=== PATIENT | male | born 1970 | race Caucasian/White ===

== ENCOUNTER 2022-05-24 16:39 | Emergency (ER) | payer OTHER ==
[~2022-05-24] VITALS: Ht 165.1 cm; Wt 72.6 kg
--- NOTE | 2022-05-24 17:12 | NUR ---
THE PATIENT BIBS FOR C/O ABDOMINAL PAIN 06/07 W/ NAUSEA AND VOMITING SINCE YESTERDAY. IN ROOM AIR AND DENIES SOB. RESPIRATION REGULAR AND UNLABORED. WILL CONTINUE TO MONITOR THE PATIENT.
[2022-05-24 18:05] LABS: BILIRUBIN,URINE NEGATIVE (NEGATIVE); COLOR,URINE YELLOW (YELLOW); LEUKOCYTE ESTERASE ,URINE NEGATIVE (NEGATIVE); NITRITE, URINE NEGATIVE (NEGATIVE); PROTEIN,URINE NEGATIVE (NEGATIVE); UGLUCOSE NEGATIVE (NEGATIVE); UROBILINOGEN,URINE 0.2 EU/dL (0.2)
[2022-05-24] MEDS ORDERED: MAG HYDROX/AL HYDROX/SIMETH 30 ML UDC ONE (18:09)
[2022-05-24] MEDS ORDERED: KETOROLAC TROMETHAMINE 15 MG/ML VIAL ONE (18:09)
[2022-05-24] MEDS ORDERED: ONDANSETRON HCL/PF 4 MG/2 ML VIAL ONE (18:09)
[2022-05-24] MEDS ORDERED: FAMOTIDINE/PF INJ 20 MG/2 ML VIAL IV ONE (18:10)
[2022-05-24 18:15] LABS: BASOPHILS % (AUTO) 0.3 % (0.0-2.0); HEMATOCRIT 45 % (39-51); HEMOGLOBIN 15.2 g/dL (13.5-17.5); LYMPHOCYTES # (AUTO) 0.8 K/uL (0.8-4.8); MEAN CORPUSCULAR HGB CONC 34 g/dl (31.0-36.0); MEAN CORPUSCULAR VOLUME 87 fL (80-96); MONOCYTES # (AUTO) 0.6 K/uL (0.1-1.30); NEUTROPHILS # (AUTO) 10.6 K/uL (1.8-8.9); NEUTROPHILS % (AUTO) 87.7 % (43.0-81.0); PLATELET COUNT (AUTO) 319 K/uL (150-450); RED BLOOD CELL COUNT(AUTO) 5.14 MIL/uL (4.5-6.0); WHITE BLOOD COUNT (AUTO) 12.1 K/uL (4.3-11.0)
[2022-05-24] MEDS: IV NS 0.9% 1,000 ML BAG IV ONE (18:15)
[2022-05-24] MEDS: MAG HYDROX/AL HYDROX/SIMETH 30 ML UDC PO ONE (18:17)
[2022-05-24] MEDS: KETOROLAC TROMETHAMINE INJ 30 MG/ML VIAL IV ONE (18:17)
[2022-05-24] MEDS: ONDANSETRON HCL/PF 4 MG/2 ML VIAL IVP ONE (18:17)
[2022-05-24] MEDS: FAMOTIDINE/PF INJ 20 MG/2 ML VIAL IV ONE (18:17)
--- NOTE | 2022-05-24 18:20 | NUR ---
US TECH AT THE BEDSIDE
[2022-05-24 18:39] LABS: BILIRUBIN,DIRECT 0.1 mg/dL (0.0-0.2); BILIRUBIN,TOTAL 0.7 mg/dL (0.2-1.0); CALCIUM, SERUM 8.7 mg/dL (8.5-10.1); CREATININE 0.9 mg/dL (0.6-1.3); POTASSIUM 3.5 mmol/L (3.5-5.1); TOTAL PROTEIN, SERUM 8.5 g/dL (6.4-8.2)
[2022-05-24 18:44] LABS: BACTERIA,URINE None seen /HPF (None Seen); RBC,URINE 0-2 /HPF (0-2); SQUAMOUS EPITHELIAL CELL,UR 0-2 /HPF (None Seen); URINE AMORPHOUS PHOSPHATES Moderate /HPF (None Seen); WBC,URINE 0-2 /HPF (0-3)
--- NOTE | 2022-05-24 21:02 | NUR ---
COVID SWAB COLLECTED AND SENT TO LAB
[2022-05-24] MEDS ORDERED: PIPERACILLIN /TAZOBACTAM 3.375 G VIAL IV ONE (21:03)
[2022-05-24] MEDS: PIPERACILLIN /TAZOBACTAM 3.375 G in IV D5W 50 ML IV ONE (21:20)
--- NOTE | 2022-05-24 22:35 | NUR ---
[facility] TO [facility] CALLED [facility] AT [phone]
--- NOTE | 2022-05-24 22:40 | NUR ---
LEIGHANN ZAVALA ON THE PHONE WITH DR NITA Catherine [facility] [phone]
--- NOTE | 2022-05-24 22:52 | NUR ---
[facility] [employer] [employer]: [phone]
[2022-05-25] MEDS ORDERED: KETOROLAC TROMETHAMINE INJ 30 MG/ML VIAL ONE (00:53)
[2022-05-25] MEDS: KETOROLAC TROMETHAMINE INJ 30 MG/ML VIAL IV ONE (00:58)
--- NOTE | 2022-05-25 02:13 | NUR ---
PT GOT ACCEPTED AT [facility] BY DR BANKS GOING TO RM: [id number]. # FOR REPORT: [phone]
--- NOTE | 2022-05-25 02:14 | NUR ---
[facility] ETA: 60-90 MIN
[2022-05-25 03:42] VITALS: BP 164/78
--- NOTE | 2022-05-25 03:51 | NUR ---
REPORT GIVEN TO ANA AT [facility]
--- NOTE | 2022-05-25 04:01 | NUR ---
PATIENT WAS TRANSFERRED TO [facility] VIA GURNEY IN STABLE CONDITION.
== END 2022-05-25 04:03 | disposition short-term general hospital (02) ==
LOC: ER 16:47
DX: K80.00 Calculus of gallbladder with acute cholecystitis without obstruction (principal); R11.2 Nausea with vomiting, unspecified; Z20.822 Contact with and (suspected) exposure to COVID-19; K29.00 Acute gastritis without bleeding; D72.829 Elevated white blood cell count, unspecified; R03.0 Elevated blood-pressure reading, without diagnosis of hypertension; R10.11 Right upper quadrant pain
CPT/HCPCS: 99285; 96365; 96375; 76705; 96361; 87426; 85025; 80048; 83690; 80076; 81001; 36415; 85730; 87081; 96376; J3490; J2405; J2543 ×2; J7060; J7030; J1885 ×2; C9803